=== PATIENT | female | born 1990 ===

== ENCOUNTER 2016-09-15 16:06 | Inpatient (IN) | payer MEDICAID ==
[2016-09-15 16:15] VITALS: O2SAT 100
[2016-09-15 17:50] LABS: BASO % 0.4 % (0.0-2.0); EOS % 0.4 % (0.0-4.0); HEMATOCRIT 40.6 % (34.0-47.0); LYMPH # 1.6 K/uL (1.0-4.3); LYMPH % 24.9 % (20.0-40.0); MEAN CORPUSCULAR HEMOGLOBIN 29.8 pg (27.0-31.0); MEAN CORPUSCULAR HGB CONC 32.8 g/dL (33.0-37.0); MEAN PLATELET VOLUME 11.4 fl (7.2-11.7); MONO # 0.5 K/uL (0.0-0.8); MONO % 8.7 % (0.0-10.0); NEUT # 4.1 K/uL (1.8-7.0); NEUT % 65.6 % (50.0-75.0); NRBC % 0.1 % (0.0-0.0); RED CELL DISTRIBUTION WIDTH 12.9 % (11.5-14.5); WHITE BLOOD COUNT 6.3 K/uL (4.8-10.8)
--- NOTE | 2016-09-15 18:05 | ED PDOC ---
HPI: Psych/Substance Abuse Time Seen by Provider: 09/15/16 16:22 Chief Complaint (Nursing): Psychiatric Evaluation Chief Complaint (Provider): Psychiatric Evaluation History Per: Patient History/Exam Limitations: no limitations Onset/Duration Of Symptoms: Days (1x) Current Symptoms Are (Timing): Gone Now Suicide/Self Injury Attempted (Context): None Severity: Moderate Associated Symptoms: Suicidal Thoughts Additional Complaint(s): 26 year old female patient presents to the ED for a psychiatric evaluation for having suicidal ideation. She reports that she texted her friend this morning stating that she wanted to kill herself. She denies having any suicidal or homicidal thoughts PMD: patient does not recall Past Medical History Reviewed: Historical Data, Nursing Documentation, Vital Signs Vital Signs: Last Vital Signs Temp 98.3 F 09/15/16 16:09 Pulse 100 H 09/15/16 16:09 Resp 20 09/15/16 16:09 BP 143/72 09/15/16 16:09 Pulse Ox 100 09/15/16 16:09 - Medical History PMH: No Chronic Diseases - Surgical History Surgical History: No Surg Hx - Family History Family History: States: No Known Family Hx - Social History Alcohol: None Drugs: Denies - Allergies Allergies/Adverse Reactions: Allergies Allergy/AdvReac Type Severity Reaction Status Date / Time No Known Allergies Allergy Verified 09/15/16 16:08 Review of Systems ROS Statement: Except As Marked, All Systems Reviewed And Found Negative Psych: Negative for: Suicidal ideation Physical Exam - Reviewed Nursing Documentation Reviewed: Yes Vital Signs Reviewed: Yes - Physical Exam Appears: Positive for: Well, Non-toxic, No Acute Distress Head Exam: Positive for: ATRAUMATIC, NORMOCEPHALIC Neurologic/Psych: Positive for: Alert, Oriented (3x), Mood/Affect (normal) - Laboratory Results Result Diagrams: 09/15/16 17:40 09/15/16 17:40 - ECG O2 Sat by Pulse Oximetry: 100 (RA) Pulse Ox Interpretation: Normal Medical Decision Making Medical Decision Makin:22 Initial impression: 26 year old female with suicidal ideation Initial plan: * BMP * drug screen urinary * Upreg * CBC XRay chest portable * 1:1 obs for suicide precaution * reevaluation Scribe Attestation: Documented by Evette Waldron, acting as a scribe for Baldev Juarez MD. Provider Scribe Attestation: All medical record entries made by the Scribe were at my direction and personally dictated by me. I have reviewed the chart and agree that the record accurately reflects my personal performance of the history, physical exam, medical decision making, and the department course for this patient. I have also personally directed, reviewed, and agree with the discharge instructions and disposition. Disposition - Clinical Impression Clinical Impression: Depressive disorder - Disposition Disposition Time: 18:35 Condition: STABLE
--- NOTE | 2016-09-15 18:15 | RAD ---
HISTORY: Pneumonia. Technique: Single view portable erect @ 18:01. COMPARISON: No prior. FINDINGS: LUNGS: No active pulmonary disease. PLEURA: No significant pleural effusion identified, no pneumothorax apparent. CARDIOVASCULAR: Normal. OSSEOUS STRUCTURES: No significant abnormalities. VISUALIZED UPPER ABDOMEN: Normal. OTHER FINDINGS: None. IMPRESSION: No active disease.
[2016-09-15 18:17] LABS: BLOOD UREA NITROGEN 9 mg/dl (7-17); CALCIUM 9.2 mg/dL (8.4-10.2); CARBON DIOXIDE 22 mmol/L (22-30); CHLORIDE 106 mmol/L (98-107); GFR AFRICAN-AMERICAN > 60; GLUCOSE,RANDOM 97 mg/dL (65-105); POTASSIUM 3.9 MMOL/L (3.6-5.0); SODIUM 143 mmol/l (132-148)
[2016-09-15] MEDS ORDERED: Alum-Mag Hydrox-Simethicone Susp (30 mL) PO PRN (21:08)
[2016-09-15] MEDS ORDERED: Magnesium Hydroxide Susp 30 ml UD PO PRN (21:08)
[2016-09-15] MEDS ORDERED: DiphenhydrAMINE 50 mg/ml Inj IM PRN (21:08)
--- NOTE | 2016-09-16 09:30 | CP.PCM.CON ---
History of Present Illness - History of Present Illness History of Present Illness: 26 yo female with no significant PMH admitted to psyche because of suicidal ideation. Review of Systems - Review of Systems All systems: reviewed and no additional remarkable complaints except (aside from those mentioned above, 12 point system review were negative by me) Past Patient History - Past Social History Smoking Status: Never Smoked Chewing Tobacco Use: No Cigar Use: No Alcohol: None Drugs: Denies - CARDIAC Hx Cardiac Disorders: No - PULMONARY Hx Respiratory Disorders: No Hx Tuberculosis: No - NEUROLOGICAL Hx Neurological Disorder: No HX Cerebrovascular Accident: No Hx Seizures: No - HEENT Hx HEENT Problems: No - RENAL Hx Chronic Kidney Disease: No - ENDOCRINE/METABOLIC Hx Endocrine Disorders: No - HEMATOLOGICAL/ONCOLOGICAL Hx Blood Disorders: No Hx Cancer: No Hx Human Immunodeficiency Virus (HIV): No - INTEGUMENTARY Hx Dermatological Problems: No - MUSCULOSKELETAL/RHEUMATOLOGICAL Hx Musculoskeletal Disorders: No - GASTROINTESTINAL Hx Gastrointestinal Disorders: No - GENITOURINARY/GYNECOLOGICAL Hx Genitourinary Disorders: No Hx Sexually Transmitted Disorders: No - PSYCHIATRIC Hx Emotional Abuse: No Hx Physical Abuse: No Hx Sexual Abuse: No Hx Substance Use: No - SURGICAL HISTORY Hx Surgeries: No - ANESTHESIA Hx Anesthesia: No Meds Allergies/Adverse Reactions: Allergies Allergy/AdvReac Type Severity Reaction Status Date / Time No Known Allergies Allergy Verified 09/15/16 16:08 - Medications Medications: Current Medications Acetaminophen (Tylenol 325mg Tab) 650 mg PO Q4 PRN PRN Reason: pain or headache Al Hydrox/Mg Hydrox/Simethicone (Maalox Plus 30 Ml) 30 ml PO Q4 PRN PRN Reason: Dyspepsia Diphenhydramine HCl (Benadryl) 50 mg PO Q6 PRN PRN Reason: Extrapyramidal Symptoms Diphenhydramine HCl (Benadryl) 50 mg IM Q6 PRN PRN Reason: Extrapyramidal S/S Unable PO Diphenhydramine HCl (Benadryl) 50 mg PO HS PRN PRN Reason: Sleep Haloperidol (Haldol) 5 mg PO Q4 PRN PRN Reason: Agitation Haloperidol Lactate (Haldol) 5 mg IM Q4 PRN PRN Reason: Agitation, Unable to Take PO Lorazepam (Ativan) 2 mg PO Q4 PRN PRN Reason: Anxiety/Agitation Lorazepam (Ativan) 2 mg IM Q4 PRN PRN Reason: Anxiety/Agitation,Unable PO Magnesium Hydroxide (Milk Of Magnesia) 30 ml PO HS PRN PRN Reason: Constipation Physical Exam - Constitutional Appears: No Acute Distress - Head Exam Head Exam: ATRAUMATIC - Eye Exam Eye Exam: absent: Scleral icterus - ENT Exam ENT Exam: Mucous Membranes Moist - Neck Exam Neck exam: Negative for: Meningismus - Respiratory Exam Respiratory Exam: absent: Rhonchi, Wheezes, Respiratory Distress - Cardiovascular Exam Cardiovascular Exam: REGULAR RHYTHM, +S1, +S2 - GI/Abdominal Exam GI & Abdominal Exam: Soft. absent: Tenderness - Rectal Exam Rectal Exam: Deferred - Extremities Exam Extremities exam: Negative for: pedal edema - Neurological Exam Neurological exam: Alert, Oriented x3 - Psychiatric Exam Psychiatric exam: Normal Affect - Skin Skin Exam: Dry, Intact Results - Vital Signs Recent Vital Signs: Last Vital Signs Temp 98.1 F 09/15/16 22:00 Pulse 73 09/15/16 22:00 Resp 16 09/15/16 22:00 BP 114/82 09/15/16 22:00 Pulse Ox 100 09/15/16 18:46 - Labs Result Diagrams: 09/15/16 17:40 09/15/16 17:40 Assessment & Plan (1) Suicidal ideation Status: Acute Comment: psyche is managing
[2016-09-16 09:39] LABS: T4 7.76 ug/dl (5.5-11.0)
[2016-09-16 09:53] LABS: THYROID STIMULATING HORMONE 2.28 mIU/ML (0.46-4.68)
--- NOTE | 2016-09-16 10:13 | PCM.PSYCH ---
Initial Psychiatric Evaluation - Initial Psychiatric Evaluation Type of Admission: Voluntary Legal Status: Capacity Chief Complaint (in patient's own words): "I don't want to kill myself. I want to go home." Patient's Reaction to Hospitalization: 26 yo female, who texted 911 repeatedly over the course of one month, reporting suicidal ideation w/[place], texted 911 yesterday after she had a fight with her , stating that she was going to kill herself, she later called the [place] hop[place], who called the police and they brought her to the hospital. Patient has a h/o also cutting her wrists 7 months ago, but did not receive treatment at that time. Patients is now denying ALL symptoms, stating that she is not suicidal, does not want to be in the hospital, is not depressed and does not want any psychiatric treatment. Patient informed that she can sign a 48 hour letter, but financial underwriter does not feel safe discharging her and will have her screened by [facility] if she sign the 48 hr letter. Collateral from ER long term care social worker: 26Y/O [place] FEMALE WHO TEXT 911 REPEATEDLY OVER THE COURSE OF ONE MONTH AND ADVISED THEM THAT SHE WAS SUICIDAL WITH PLANS TO [place]; HOWEVER WAS GIVEN NO ASSISTANCE FROM THE POLICE OTHER THAN ON THE LAST TEXT CONVERSATION THEY GAVE HER THE NUMBER TO THE [place] [facility]. PT REPORTED THAT SHE HAD TEXT 911 TODAY AND TOLD THEM AT AT 12NOON SHE WAS GOING TO KILLL HERSELF BUT THEY ENCOURAGED HER TO CALL THE [place] [facility]. SHE REPORTED THAT [facility] [place] [facility] AND [facility] WERE THE ONLY ONES TO HELP HER. SHE REPORTED IT WAS THE HOPELINE THAT HAD POLICE COME AND GET HER AND BRING HER TO THE HOSPITAL. PT SHOWED THIS INDUSTRIAL HYGIENIST ALL HER TEXT CONVERSATIONS WITH 911 AND HER DEPICTION OF EVENTS APPEARS ACCURATE. PT REPORTED THAT SHE IS . SHE REPORTED THAT HER MARRIAGE WAS AN ARRANGEMENT. SHE REPORTED THAT HER ONLY WORKS ONE DAY A WEEK AND HE MAKES HER WORK EVERYDAY. SHE REPORTED THAT HE MAKES HER WORK DOUBLES EVERYDAY AND THAT HE FORCES HER TO GIVE HIM ALL HER MONEY. SHE REPORTED THAT WHENEVER SHE TRIES TO KEEP JUST A LITTLE FOR HERSELF HE THREATENS TO BURN HER VISA AND HER GREEN CARD. 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 SHE REPORTED THAT TODAY SHE CONTACTED HER FAMILY IN [place] AND THEY TOLD HER THAT SHE IS HIS PROPERTY AND SHE MUST OBEY HIM. PT REPORTED THAT SHE CAN NO LONGER TAKE IT. PT REPORTED ONE PRIOR SUICIDE ATTEMPT 7 MONTHS AGO VIA SMALL LACERATION TO HER WRIST; HOWEVER PT WAS NOT BROUGHT TO THE HOSPITAL BECAUSE HER COULD NOT ALLOW HER TO COME. PT REPORTED THAT THE ONLY WAY SHE GOT TO COME TODAY WAS BECASUE THE POLICE BROUGHT HER OTHERWISE HER WOULD NOT ALLOW IT. AT THE TIME OF ASSESSMENT, PT WAS CALM, COOPERATIVE AND BEHAVIORALLY CONTROLLED. SPEECH WAS SOFT AND UNDERPRODUCTIVE. PSYCHOMOTOR SKILLS WERE WITHIN NORMAL LIMITS. HER THOUGHT PROCESS WAS COHERENT. HER THOUGHT CONTENT EXCLUDED THE PRESENCE OF PERCEPTUAL. SHE CONTINUED TO REPORT ACTIVE SI HOWEVER DENIED HI. SHE DENIED HAVING A/V/T HALLUCINATIONS; NOR WAS SHE OBSERVED TO BE RESPONDING TO INTERNAL/EXTERNAL STIMULI. PT DISPLAYED NO SIGNS OF PSYCHOSIS. SHE IS REPORTING AN INABILITY TO CONTRACT FOR HER SAFETY IF SHE IS DISCHARGED FROM THIS HOSPITAL. SHE WAS NOT IN ACUTE CRISIS HOWEVER DOES PRESENT MENTALLY DISTRESSED. THE PT WAS ALERT AND ORIENTED X3. SHE WAS FAIRLY WELL GROOMED. HER HYGIENE WAS FAIR AND SHE APPEARED TO BE IN FAIR PHYSICAL HEALTH. HER GAIT WAS STEADY AND HER POSTURE AND BALANCE REMAINED UNIMPAIRED. SHE REPORTED SOME SIGNIFICANT SLEEP AND APPETITE DISTURBANCES. HER MOOD WAS DEPRESSED AND HER AFFECT WAS FLAT. MEMORY WAS FAIR. EYE CONTACT WAS POOR. INSIGHT AND JUDGMENT WERE NOTED TO BE LIMITED TO FAIR. AT THIS TIME PT APPEARS TO BE EXHIBITING A MARKED DETERIORATION IN HER COGNITIVE ABILITIES TO FUNCTION. PT REMAINS UNABLE TO ADEQUATELY CONTRACT FOR HER SAFETY WELL FORMULATE A SAFETY PLAN IF DISCHARGED FROM THIS ER; THEREFORE SHE MEETS CRITERIA FOR ADMISSION. PT IS AGREEABLE TO BEING ADMITTED AND SIGNED VOLUNTARY CONSENT FOR THIS ADMISSION. PPHx: Denies h/o psychiatric tx or medications. PMHx: Denies medical history SHx: From [place], her family remains in [place]. Denies drugs/etoh/cig use. All: NKDA Current Medications: Active Medications Generic Name Dose Route Start Last Admin Trade Name Freq PRN Reason Stop Dose Admin Acetaminophen 650 mg 09/15/16 21:08 Tylenol 325mg Tab PO Q4 PRN pain or headache Al Hydrox/Mg Hydrox/Simethicone 30 ml 09/15/16 21:08 Maalox Plus 30 Ml PO Q4 PRN Dyspepsia Diphenhydramine HCl 50 mg 09/15/16 21:08 Benadryl PO Q6 PRN Extrapyramidal Symptoms Diphenhydramine HCl 50 mg 04/15/17 21:08 Benadryl IM Q6 PRN Extrapyramidal S/S Unable PO Diphenhydramine HCl 50 mg 09/15/16 23:46 Benadryl PO HS PRN Sleep Haloperidol 5 mg 09/15/16 21:08 Haldol PO Q4 PRN Agitation Haloperidol Lactate 5 mg 09/15/16 21:08 Haldol IM Q4 PRN Agitation, Unable to Take PO Lorazepam 2 mg 09/15/16 21:08 Ativan PO Q4 PRN Anxiety/Agitation Lorazepam 2 mg 09/15/16 21:08 Ativan IM Q4 PRN Anxiety/Agitation,Unable PO Magnesium Hydroxide 30 ml 09/15/16 21:08 Milk Of Magnesia PO HS PRN Constipation Past Psychiatric History - Past Psychiatric History Previous Treatment History: None Pertinent Medical Hx (Current Medical&Sleep Prob, Allergies): Allergies Allergy/AdvReac Type Severity Reaction Status Date / Time No Known Allergies Allergy Verified 09/15/16 16:08 Review of Systems - Review of Systems All systems: reviewed and no additional remarkable complaints except Mental Status Examination - Personal Presentation Personal Presentation: Looks stated age - Affect Affect: Broad - Motor Activity Motor Activity: Calm - Reliability in Providing Information Reliability in Providing Information: Good (Patient very guarded) - Speech Speech: Organized - Mood Mood: Neutral - Formal Thought Process Formal Thought Process: No Impairment - Obsessions/Compulsions Obsessions: No Compulsions: No - Cognitive Functions Orientation: Person, Place, Situation, Time Attention/Concentration: Attentive Estimate of Intelligence: Average Judgement: Imparied, as evidence by: Lack of insight into illness Memory: Recent intact, as evidence by: Ability to recall events of the day, Remote intact, as evidenced by: Abilit to recall sig. life events, Remote intact , as evidenced by: Ability to recall historical events - Risk Risk: Suicidal - Strength & Assets Inventory Strength & Assets Inventory: Intelligence DSM 5 DX - DSM 5 DSM 5 Diagnosis: Major Depressive Disorder, r/o Borderline personality disorder - Recommended/Plan of Treatment Treatment Recommendations and Plan of Treatment: 26 yo female w/ h/o cutting her wrists 7 months ago, presented with suicidal ideation to [place], which she reported to 911 and a suicide hotline , now minimizing symptoms, refusing psychiatric treatment and requesting discharge. Design Leader does not believe she is safe to be discharged at this time. -Admit to psychiatry -If patient submits a 48 hour letter, will screen for involuntary admission -Patient refusing psychotropic medications at this time Projected ELOS: 5-7 days Discharge Plan and Discharge Criteria: Discharge patient when she is psychiatrically stable - Smoking Cessation Smoking Cessation Initiated: No Reason for not providing: Not indicated
[2016-09-16 16:42] LABS: RBC URINE 5 /hpf (0-3); URINE BILIRUBIN NEGATIVE (NEGATIVE); URINE BLOOD MODERATE (NEGATIVE); URINE COLOR YELLOW (YELLOW); URINE GLUCOSE (UA) NEG (Normal); URINE KETONE NEGATIVE (NEGATIVE); URINE LEUKOCYTE ESTERASE NEG Leu/uL (Negative); URINE PROTEIN NEGATIVE (NEGATIVE); URINE UROBILINOGEN 0.2-1.0 mg/dL (0.2-1.0); WBC URINE 1 /hpf (0-5)
--- NOTE | 2016-09-17 08:39 | PCM.PYCHDC ---
Mental Status Examination - Mental Status Examination Orientation: Person, Place, Situation, Time Memory: Intact Mood: Neutral Affect: Broad Speech: Appropriate Attention: WNL Concentration: WNL Association: WNL Fund of Knowledge: WNL Formal Thought Process: No Impairment Description of patient's judgement and insight: Fair I/J Suicidal Ideation: No Current Homicidal Ideation?: No Discharge Summary - Discharge Note Reason for Hospitalization: 26 yo [place] female, who texted 911 repeatedly over the course of one month, reporting suicidal ideation w/plan to [place], texted 911 yesterday after she had a fight with her , stating that she was going to kill herself, she later called the [place] hopeline, who called the police and they brought her to the hospital. Patient has a h/o also cutting her wrists 7 months ago, but did not receive treatment at that time. Patients is now denying ALL symptoms, stating that she is not suicidal, does not want to be in the hospital, is not depressed and does not want any psychiatric treatment. Patient informed that she can sign a 48 hour letter, but film writer does not feel safe discharging her and will have her [place] [facility] if she sign the 48 hr letter. Collateral from ER general warehouse worker: 26Y/O FEMALE WHO TEXT 911 REPEATEDLY OVER THE COURSE OF ONE MONTH AND ADVISED THEM THAT SHE WAS SUICIDAL WITH PLANS TO [place]; HOWEVER WAS GIVEN NO ASSISTANCE FROM THE POLICE OTHER THAN ON THE LAST TEXT CONVERSATION THEY GAVE HER THE NUMBER TO THE [facility]. PT REPORTED THAT SHE HAD TEXT 911 TODAY AND TOLD THEM AT AT 12NOON SHE WAS GOING TO KILLL HERSELF BUT THEY ENCOURAGED HER TO CALL THE [facility]. [facility] RE[facility]ED [facility] AND [facility] WERE THE ONLY ONES TO HELP HER. SHE REPORTED IT WAS THE HOPELINE THAT HAD POLICE COME AND GET HER AND BRING HER TO THE HOSPITAL. PT SHOWED THIS FOAM FABRICATOR ALL HER TEXT CONVERSATIONS WITH 911 AND HER DEPICTION OF EVENTS APPEARS ACCURATE. PT REPORTED THAT SHE IS . SHE REPORTED THAT HER MARRIAGE WAS AN ARRANGEMENT. SHE REPORTED THAT HER ONLY WORKS ONE DAY A WEEK AND HE MAKES HER WORK EVERYDAY. SHE REPORTED THAT HE MAKES HER WORK DOUBLES EVERYDAY AND THAT HE FORCES HER TO GIVE HIM ALL HER MONEY. SHE REPORTED THAT WHENEVER SHE TRIES TO KEEP JUST A LITTLE FOR HERSELF HE THREATENS TO BURN HER VISA AND HER GREEN CARD. 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 SHE REPORTED THAT TODAY SHE CONTACTED HER FAMILY IN [place] AND THEY TOLD HER THAT SHE IS HIS PROPERTY AND SHE MUST OBEY HIM. PT REPORTED THAT SHE CAN NO LONGER TAKE IT. PT REPORTED ONE PRIOR SUICIDE ATTEMPT 7 MONTHS AGO VIA SMALL LACERATION TO HER WRIST; HOWEVER PT WAS NOT BROUGHT TO THE HOSPITAL BECAUSE HER COULD NOT ALLOW HER TO COME. PT REPORTED THAT THE ONLY WAY SHE GOT TO COME TODAY WAS BECASUE THE POLICE BROUGHT HER OTHERWISE HER WOULD NOT ALLOW IT. AT THE TIME OF ASSESSMENT, PT WAS CALM, COOPERATIVE AND BEHAVIORALLY CONTROLLED. SPEECH WAS SOFT AND UNDERPRODUCTIVE. PSYCHOMOTOR SKILLS WERE WITHIN NORMAL LIMITS. HER THOUGHT PROCESS WAS COHERENT. HER THOUGHT CONTENT EXCLUDED THE PRESENCE OF PERCEPTUAL. SHE CONTINUED TO REPORT ACTIVE SI HOWEVER DENIED HI. SHE DENIED HAVING A/V/T HALLUCINATIONS; NOR WAS SHE OBSERVED TO BE RESPONDING TO INTERNAL/EXTERNAL STIMULI. PT DISPLAYED NO SIGNS OF PSYCHOSIS. SHE IS REPORTING AN INABILITY TO CONTRACT FOR HER SAFETY IF SHE IS DISCHARGED FROM THIS HOSPITAL. SHE WAS NOT IN ACUTE CRISIS HOWEVER DOES PRESENT MENTALLY DISTRESSED. THE PT WAS ALERT AND ORIENTED X3. SHE WAS FAIRLY WELL GROOMED. HER HYGIENE WAS FAIR AND SHE APPEARED TO BE IN FAIR PHYSICAL HEALTH. HER GAIT WAS STEADY AND HER POSTURE AND BALANCE REMAINED UNIMPAIRED. SHE REPORTED SOME SIGNIFICANT SLEEP AND APPETITE DISTURBANCES. HER MOOD WAS DEPRESSED AND HER AFFECT WAS FLAT. MEMORY WAS FAIR. EYE CONTACT WAS POOR. INSIGHT AND JUDGMENT WERE NOTED TO BE LIMITED TO FAIR. AT THIS TIME PT APPEARS TO BE EXHIBITING A MARKED DETERIORATION IN HER COGNITIVE ABILITIES TO FUNCTION. PT REMAINS UNABLE TO ADEQUATELY CONTRACT FOR HER SAFETY WELL FORMULATE A SAFETY PLAN IF DISCHARGED FROM THIS ER; THEREFORE SHE MEETS CRITERIA FOR ADMISSION. PT IS AGREEABLE TO BEING ADMITTED AND SIGNED VOLUNTARY CONSENT FOR THIS ADMISSION. PPHx: Denies h/o psychiatric tx or medications. PMHx: Denies medical history SHx: From [place], her family remains in [place]. Denies drugs/etoh/cig use. All: NKDA Laboratory Data: Abnormal Lab Results 09/16/16 09/16/16 09/16/16 08:00 16:22 16:32 Triglycerides 108 Cholesterol 157 LDL Cholesterol Direct 102 HDL Cholesterol 34 Thyroxine (T4) 7.76 TSH 3rd Generation 2.28 Urine Color Yellow Urine Clarity Clear Urine pH 6.0 Ur Specific [place] 1.013 Urine Protein Negative Urine Glucose (UA) Neg Urine Ketones Negative Urine Blood Moderate Urine Nitrate Negative Urine Bilirubin Negative Urine Urobilinogen 0.2-1.0 Ur Leukocyte Esterase Neg Urine RBC (Auto) 5 H Urine Microscopic WBC 1 Ur Squamous Epith Cells 1 Urine HCG, Qual Negative RPR Nonreactive Consultations:: List each consultation separately and include: 1. Reason for request. 2. Findings. 3. Follow-up Consultations: Medicine consult Summary of Hospital Course include:: 1. Description of specific treatment plan utilized for patients during their course of treatmen. 2. Summarize the time- course for resolution of acute symptoms and/or regressed behaviors. 3. Describe issues identified and worked on during hospitalization. 4. Describe medication utilized. 5. Describe medical problems identified and treated. 6. Reassessment of suicide risk Summary of Hospital Course: Patient admitted to the hospital. She denied any suicidal ideation/plan/intent after she was admitted. She submitted a 48 hour letter, was screened for involuntary commitment [place] [facility] and did not meet criteria for involuntary commitment, so she will be discharged. Patient unwilling to take any psychotropic medications at this time and does not believe she needs any psychiatric care. - Final Diagnosis (DSM 5) Condition upon Discharge: STABLE DSM 5: Major Depressive Disorder; r/o Borderline Personality Disorder Disposition: HOME/ ROUTINE Follow-up Treatment Plan: Patient admitted to the hospital. She denied any suicidal ideation/plan/intent after she was admitted. She submitted a 48 hour letter, was screened for involuntary commitment by [facility] and did not meet criteria for involuntary commitment, so she will be discharged. Patient unwilling to take any psychotropic medications at this time and does not believe she needs any psychiatric care. - Smoking Cessation Smoking Cessation Medication prescribed: No Reason for not providing: Not indicated - Antipsychotic Medications Pt discharged on 2 or more routine antipsychotic medications: No
[2016-09-17 10:33] VITALS: BP 122/76; PULSE 85; RESP 16; TEMP 97
--- NOTE | 2016-09-17 16:03 | CARD ---
APPROVED REPORT EKG Measurement Heart [id number] <Conclusion> Normal sinus rhythm Possible Left atrial enlargement Borderline ECG
== END 2016-09-17 12:03 | disposition left against medical advice (07) | DRG 426 ==
LOC: H.ER 16:06 → H.ERHOLD 18:35 → H.PSYCH 20:37
PROVIDERS: ADMIT Psychiatry & Neurology Psychiatry; ATTEND Psychiatry & Neurology Psychiatry
DX: F32.9 Major depressive disorder, single episode, unspecified (principal); R45.851 Suicidal ideations; Z91.5 Personal history of self-harm